=== PATIENT | female | born 1940 | race Caucasian/White ===

== ENCOUNTER 2018-07-06 23:18 | Observation (INO) | payer MEDICARE, BC ==
[2018-07-07] MEDS ORDERED: Fentanyl 100 MCG/2 ML VIAL ONE (01:02)
[2018-07-07] MEDS ORDERED: Ondansetron ODT 4 MG TAB PO PRN (03:41)
[2018-07-07] MEDS ORDERED: Cyclobenzaprine 10 MG TAB PO PRN (03:41)
[2018-07-07] MEDS ORDERED: Dextrose 5% in Water 1,000 ML IV PRN (03:41)
[2018-07-07] MEDS ORDERED: traMADol HCl 50 MG TAB PO PRN ×2 (03:41)
[2018-07-07] MEDS ORDERED: hydrALAZINE 20 MG/ML VIAL SLOW IVP PRN (03:41)
[2018-07-07] MEDS ORDERED: Ondansetron PF 4 MG/2 ML Vial IVP PRN (03:41)
[2018-07-07] MEDS ORDERED: Dextrose 50% Abboject 50 ML SYRINGE SLOW IVP PRN (03:41)
--- NOTE | 2018-07-07 04:10 | HP ---
CONSULTATIONS: Neurosurgery, Dr. Cordero. HISTORY OF PRESENT ILLNESS: The patient is a 77-year-old woman, who reportedly had a ground level fall today and was taken to the emergency department in [facility], where she underwent evaluation and examination, and was noted to have a possible extension injury to her C-spine, and it was felt to be a possible occult fracture, so she was transferred to our facility for further evaluation and possible MRI and pain control. We are asked to admit the patient for pain control and obtain the neurosurgical consultation. The patient denied loss of consciousness and currently her pain is controlled after some fentanyl. The patient is also on a well fitted [place] collar. ALLERGIES: NONE. CURRENT MEDICATIONS: 1. Lisinopril. 2. Pravastatin. 3. Felodipine. 4. Baby aspirin. PAST MEDICAL HISTORY: 1. Hypertension. 2. Hyperlipidemia. 3. Breast CA. 4. Chronic neck pain. PAST SURGICAL HISTORY: C2 hangman's fracture treated with halo device and bilateral breast mastectomy for her breast CA, also hysterectomy. SOCIAL HISTORY: The patient lives at home. She denies drug, tobacco, or alcohol use. REVIEW OF SYSTEM: A 10-point review of systems is negative as otherwise stated. PHYSICAL EXAMINATION: VITAL SIGNS: Blood pressure 122/79, heart rate 68, respirations 16, oxygen saturation 95% on room air, and temperature is 98.0. GENERAL: The patient is resting comfortably in the ER bed. She is awake, alert, and oriented x3. Mariela Coma Scale is 15. HEENT: Head is normocephalic, shows contusion noted to left side of her forehead. Eyes, extraocular motion intact. PERRLA bilaterally. Ears are atraumatic without discharge. Nose, atraumatic without discharge. Oropharynx is clear. NECK: Nontender. To the midline she does have some tenderness to palpation paraspinous. [place] collar is well fitting. The trachea is midline. No JVD. CHEST: Clear to auscultation with good inspiratory and expiratory effort. HEART: Regular rate and rhythm. ABDOMEN: Soft, flat, nontender with active bowel sounds. PELVIS: Stable. EXTREMITIES: The patient has contusions to both upper extremities. NEUROLOGICAL: All extremities are neurovascularly intact. 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 LABORATORY FINDINGS: White blood cell count 4.9, hemoglobin 12.1, hematocrit 37.5, and platelets 243. Sodium 141, potassium 3.9, chloride 106, CO2 of 26, BUN 25, creatinine 0.70, and glucose 135. LFTs are unremarkable. PT 12.5, INR 0.9, and PTT 29. Urinalysis is unremarkable. RADIOGRAPHIC FINDINGS: CT of the brain without contrast shows no acute intracranial findings. CT of the face without contrast shows soft tissue swelling but no acute bony fractures. CT of the C-spine without contrast shows multiple severe degenerative changes with no acute traumatic findings. AP chest x-ray shows no acute thoracic findings Radiograph of the right knee shows no acute findings. ASSESSMENT: 1. Status post ground level fall. 2. Cervical pain without radiculopathy or neurologic changes. 3. History of hypertension. 4. History of aspirin use. PLAN: Plan will be to admit the patient for observation to the surgical floor. Have her evaluated by Neurosurgery to determine if an MRI is indicated. The evaluation, examination, laboratory, and radiographic findings will be discussed with Dr. Peterson after this dictation. Job ID: [id number]
[2018-07-07] MEDS: Acetaminophen 500 MG TAB PO SCH ×2 (04:15→11:53)
[2018-07-07 04:28] VITALS: BMI 26.6
[2018-07-07] MEDS ORDERED: Ibuprofen 600 MG TAB PO SCH (06:00)
[2018-07-07] MEDS ORDERED: Acetaminophen/Codeine 30-300mg Tablet PO PRN ×2 (06:52)
[2018-07-07] MEDS ORDERED: Morphine 4 MG/ML VIAL SLOW IVP SCH (07:15)
--- NOTE | 2018-07-07 07:32 | PRG ---
DATE OF SERVICE: 07/07/2018 I personally interviewed and examined the patient, agree with documentation of Sridevi Barbosa PA-C, dated 07/07/2018. Briefly, Ina Saldaña is the mother of Yohan Saldaña, former patient of mine. Interestingly, Ms. Saldaña had a hangman fracture treated with a Halo-vest immobilization in the . 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 Yesterday, she had quite a fall and has some significant increase in her neck pain. CT examination of cervical spine has been negative. She is in a cervical collar. Ms. Saldaña was admitted to control her pain. She does not have any symptoms in the arms or legs. No fevers recorded in the vital signs. Blood pressures have been in 140s. Neurological examination with good strength in upper and lower extremities and sensation all the way to the fingertips and toes. Reviewed CT imaging of the cervical spine. There is an auto fusion of C2-C3 likely from the healing of her Hangman fracture. There is degenerative joint disease in the cervical spine and some kyphosis but no acute fracture that I can appreciate. There is a small bone spur or bone chip in the intra-articular process of C7, but this appears chronic rather than an acute small fracture. Ms. Saldaña has neck pain after fall without CT imaging of fracture. The management strategy for these patients is to use a collar and have them come back to the office in about a week to 2 weeks when the neck is not hurting. At that examination, we palpate the cervical spine and make sure that it is not tender to palpation and then I will get flexion-extension views to check ligamentous stability. Ms. Saldaña wants to use this treatment strategy rather than have an MRI scan. I think this is the normal strategy and would work well for her. She can be discharged when her pain is under control, and we will see her back in the office. I do not see any indication for surgical intervention. Job ID: [id number] [facility]
[2018-07-07] MEDS ORDERED: tiZANidine HCl 4 MG TAB PO SCH (09:00)
[2018-07-07 12:29] VITALS: BP 149/80; TEMP 97.6
--- NOTE | 2018-07-07 12:29 | CON ---
DATE OF CONSULTATION: 07/07/2018 HISTORY OF PRESENT ILLNESS: Ms. Saldaña is a 77-year-old female, who was brought to [facility] Emergency Department yesterday due to ground level fall. The patient states that she was carrying laundry into her house and a piece of clothing fell and she tripped over it and struck her face on the ground. Emergency Department obtained CTA of head and spine, which were negative for any fractures or dislocations. They were concerned that due to a 40-year history of hangman fracture that there is a possible change in that status and wanted her to be transferred to our hospital to get further treatment. As I entered the patient's hospital room, she is resting in her bed. She has a well-fitting [place] collar on. She has some ecchymosis around the right eye and right cheek. She complains of face pain and neck pain, however, she has no numbness or tingling. No radicular symptoms in arms or legs. The patient is moving all 4 extremities well. She has good strength and range of motion bilaterally. No focal motor or sensory deficits noted. ALLERGIES: NO KNOWN DRUG ALLERGIES. MEDICATIONS: 1. Lisinopril. 2. Pravastatin. 3. Felodipine. 4. Baby aspirin. PAST MEDICAL HISTORY: Hypertension, hyperlipidemia, breast cancer, chronic back pain. PAST SURGICAL HISTORY: C2 hangman's fracture treated with halo, bilateral breast mastectomy, and hysterectomy. SOCIAL HISTORY: The patient lives at home. She denies any drugs, alcohol, or tobacco use. REVIEW OF SYSTEMS: A 10-point review of systems has been completed and is negative otherwise stated above in the HPI. PHYSICAL EXAMINATION: VITAL SIGNS: Temperature 97.8, heart rate 68, respirations 18, O2 saturations 97% on room air, and blood pressure 128/69. CONSTITUTIONAL: The patient is alert and oriented. She is resting comfortably in her hospital bed. She has her well-fitting [place] collar. She is awake, alert, and oriented x3. Does not appear to be in distress. HEENT: Head is normocephalic. There are contusions of the right side of her head, above her eye, and along her cheek. Her pupils are equal, round, and reactive to light. Extraocular movements are intact. Hearing is intact. Moist mucous membranes. NECK: Tender to palpation. Cervical spine collar is well fitting. Trachea is midline. RESPIRATIONS: Normal work of breathing on room air. Symmetric chest rise. EXTREMITIES: The patient is moving all 4 extremities well. Normal strength and range of motion bilaterally. Good upper and lower extremity strength with rn trauma strength. Lower extremities, normal strength bilaterally. NEUROLOGIC: The patient is alert and oriented x3. Speech is spontaneous and fluent. Normal attention and concentration. Normal fund of knowledge. There are no lateralizing sensory or motor deficits noted. IMAGING: CT of the brain was found with no intracranial abnormalities. CT of the face shows soft tissue swelling, but no acute bony fractures. CT of the cervical spine shows multiple severe degenerative changes, but no acute traumatic findings. No fractures or dislocations noted. ASSESSMENT AND PLAN: This is a 77-year-old female, who had a ground level fall with edema and ecchymosis to her face and neck pain. Imaging is negative for acute fracture. Our recommendations are to have her in a cervical collar and follow up with us on an outpatient basis. The patient does not need any further imaging at this time. Job ID: [id number]
== END 2018-07-07 13:30 | disposition home or self-care (01) ==
LOC: ERS 23:18 → SURG B 07-07 03:27
PROVIDERS: ADMIT Surgery; ATTEND Surgery
DX: M54.2 Cervicalgia (principal); G89.29 Other chronic pain; M54.9 Dorsalgia, unspecified; I10 Essential (primary) hypertension; E78.5 Hyperlipidemia, unspecified; M47.812 Spondylosis without myelopathy or radiculopathy, cervical region; M40.202 Unspecified kyphosis, cervical region; S00.11XA Contusion of right eyelid and periocular area, initial encounter; S00.83XA Contusion of other part of head, initial encounter; Z85.3 Personal history of malignant neoplasm of breast; Z79.82 Long term (current) use of aspirin; Z79.899 Other long term (current) drug therapy; W01.0XXA Fall on same level from slipping, tripping and stumbling without subsequent striking against object, initial encounter
CPT/HCPCS: 96374; 97139 ×3; 99284; G0378 ×2; G0390; J3010

== ENCOUNTER 2018-07-24 14:01 | Outpatient (CLI) | payer MEDICARE, BC ==
--- NOTE | 2018-07-24 15:25 | RAD ---
3 lateral projections of the cervical spine (flexion, neutral and extension positioning): 07/24/2018 12:00 AM CLINICAL HISTORY: Fall with neck strain COMPARISON: CT cervical spine dated July 06, 2018. Bones: No acute fracture demonstrated. Intervertebral disc spaces and facet complexes: There is moderate disc degenerative disease at C5-6 a nd C6-7. There is prominent multilevel facet osteoarthritic change. Spinal alignment: There is stable anterior translation of C3 on C4 and C7 on T1. The C3-C4 anterior t ranslation appears slightly accentuated with flexion and partially reduces with extension. The C7-T1 anterior translation demonstrates no abnormal translational motion. Incidental note is made of mild anterior translation of T1 on T2 that is stable on the flexion-extension dynamic lateral projections. Prevertebral soft tissues: Normal. Additional findings: None. IMPRESSION: Moderate to severe multilevel cervical spondylosis. Anterior translation of C3 on C4 with neutral positioning is worsened with flexion and slightly reduc es with extension. Anterior translation of C7 on T1 demonstrates no abnormal translational motion on the flexion-extensi on lateral projections.
== END 2018-07-24 14:02 | disposition home or self-care (01) ==
LOC: TBSIIMAG 14:01
PROVIDERS: ATTEND Neurological Surgery
DX: S16.1XXA Strain of muscle, fascia and tendon at neck level, initial encounter (principal)
CPT/HCPCS: 72040

== ENCOUNTER 2021-01-16 09:38 | Outpatient (CLI) | payer MEDICARE, BC | END 2021-01-16 09:39 | disposition home or self-care (01) | LOC: BICRAD 09:38 | PROVIDERS: ATTEND Family Medicine | DX: M50.10 Cervical disc disorder with radiculopathy, unspecified cervical region (principal); M81.0 Age-related osteoporosis without current pathological fracture; M47.22 Other spondylosis with radiculopathy, cervical region | CPT/HCPCS: 72040; 72100 ==

== ENCOUNTER 2021-01-27 08:55 | Outpatient (CLI) | payer MEDICARE, BC | END 2021-01-27 08:56 | disposition home or self-care (01) | LOC: BICMAMMO 08:55 | PROVIDERS: ATTEND Family Medicine | DX: M81.0 Age-related osteoporosis without current pathological fracture (principal); M48.061 Spinal stenosis, lumbar region without neurogenic claudication; M50.10 Cervical disc disorder with radiculopathy, unspecified cervical region; M85.88 Other specified disorders of bone density and structure, other site | CPT/HCPCS: 77080 ==